=== PATIENT | male | born 1980 | race Caucasian/White ===

== ENCOUNTER → 2023-09-11 | Outpatient (REF) | payer SELFPAY ==
[2023-09-11 21:37] LABS: CHLAMYDIA DNA AMPLIFICATION NEGATIVE (NEGATIVE); GC DNA AMPLIFICATION NEGATIVE (NEGATIVE)
== END ==
LOC: M LAB REF 19:50
PROVIDERS: ATTEND Student in an Organized Health Care Education/Training Program
DX: N50.819 Testicular pain, unspecified (principal)